=== PATIENT | female | born 1940 | race Two or more races ===

== ENCOUNTER 2016-12-19 06:48 | Observation (INO) | payer MEDICARE ==
[2016-12-15 10:43] LABS: HEMATOCRIT 46.5 % (34.6-47.8); HEMOGLOBIN 15.9 g/dL (11.7-16.4); WHITE BLOOD COUNT 6.9 x10^3/uL (3.4-10)
[2016-12-15 10:54] LABS: BLOOD UREA NITROGEN 12 mg/dL (7-18)
[2016-12-15 10:57] LABS: ASPARTATE AMINO TRANSFERASE 25 U/L (15-37)
[~2016-12-19] VITALS: Ht 165.1 cm; Wt 63.0 kg
[~2016-12-19 06:48] MED LIST: ACET325T14 PO; ASPI-496 PO; ATOR10TA9 PO; BIOT1CAP3 PO; BIOT1TAB2 PO; CHOL200024 PO; CITA10TA8 PO; DOXY100T10 PO; FLUT16SP2 NS; GABA300C10 PO; METO-93 PO; METO50TA82 PO; ROPI4TAB3 PO; ROPI4TAB4 PO
[2016-12-19] MEDS ORDERED: SODIUM CHLORIDE 0.9% 1,000 ML IV SCH (06:50)
[2016-12-19] MEDS ORDERED: ISOPROTERENOL 0.2MG/ML, 5ML ONE (07:55)
[2016-12-19] MEDS ORDERED: ADENOSINE 6 MG/2 ML ONE (07:55)
[2016-12-19] MEDS ORDERED: MIDAZOLAM 1 MG/ML, 5ML ONE ×2 (07:55→10:18)
[2016-12-19] MEDS ORDERED: FENTANYL PF 100 MCG/2ML ONE ×2 (07:55→10:18)
[2016-12-19] MEDS ORDERED: LIDOCAINE 2%, 20ML ONE ×2 (07:56→09:45)
[2016-12-19] MEDS ORDERED: HEPARIN 1,000 UNITS/ML, 10ML ONE (07:56)
[2016-12-19] MEDS ORDERED: PROTAMINE SULFATE 10 MG/ML, 5ML ONE (09:48)
[2016-12-19] MEDS ORDERED: DIPHENHYDRAMINE 50 MG/ML, 1ML ONE (10:18)
[2016-12-19] MEDS ORDERED: ACETAMINOPHEN 325 MG TABLET PO PRN (12:30)
[2016-12-19] MEDS ORDERED: ZOLPIDEM 5MG TABLET PO PRN (12:30)
[2016-12-19 17:24] VITALS: BP 135/78
[2016-12-19 20:40] VITALS: BP 129/71
[2016-12-19] MEDS ORDERED: ATORVASTATIN 10 MG TABLET PO SCH (21:00)
[2016-12-20 02:00] VITALS: BP 138/81
[2016-12-20] MEDS ORDERED: CHOLECALCIFEROL 1,000 UNIT TABLET PO SCH (09:00)
[2016-12-20] MEDS ORDERED: ASPIRIN 81 MG TABLET EC PO SCH ×2 (09:00)
[2016-12-20] MEDS ORDERED: CITALOPRAM 10 MG TABLET PO SCH (09:00)
[2016-12-20] MEDS ORDERED: TEMPLATE NON-FORMULARY MED. (Biotin** 1 MG) PO SCH (09:00)
[2016-12-20] MEDS ORDERED: ROPINIROLE 1MG TABLET PO SCH (09:00)
[2016-12-20] MEDS ORDERED: ASPI325T17 PO (09:01)
[2016-12-20 09:54] VITALS: BP 101/68
== END 2016-12-20 11:33 | disposition home or self-care (01) ==
LOC: CACL 06:48 → ORIP 12:30 → 5SO 16:42 → DCLOUNGE 12-20 10:44
PROVIDERS: ADMIT Internal Medicine Cardiovascular Disease; ATTEND Internal Medicine Cardiovascular Disease
DX: I47.1 Supraventricular tachycardia (principal); E78.5 Hyperlipidemia, unspecified
CPT/HCPCS: 85347; 93462; 93613; 93621; 93623; 93653; 93662; C1730; C1732; C1759; C1760; C1766; C1893; C1894; C2630; G0378; J1200; J1644; J2250; J2720; J3010; J3490; Q9967; 36415; 80053; 85025; 85610; 85730; J0153

== ENCOUNTER → 2018-01-09 | Outpatient (CLI) | payer MEDICARE ==
[~2018-01-09] MED LIST changes: +ASPI325T17 PO; -ROPI4TAB4 PO; +ROPI4TAB8 PO
== END | disposition home or self-care (01) ==
LOC: CFH 13:27
PROVIDERS: ATTEND Family Medicine
DX: E78.2 Mixed hyperlipidemia (principal); Z95.0 Presence of cardiac pacemaker
CPT/HCPCS: 71046

== ENCOUNTER 2018-04-11 09:24 | Emergency (ER) | payer MEDICARE ==
[~2018-04-11] VITALS: Ht 165.1 cm; Wt 62.0 kg
--- NOTE | 2018-04-11 09:49 | NUR ---
[employer]: PT TO ROOM FROM LOBBY VIA W/C.
--- NOTE | 2018-04-11 10:05 | NUR ---
DIZZINESS, PALPITATIONS TODAY. HX OF CARDIAC STENTS, PACEMAKER. CARDS=ELIDIA. PER TRIAGE NOTE
[2018-04-11 10:29] LABS: BASOPHILS # (AUTO) 0.07 x10^3/uL (0-0.1); BASOPHILS % (AUTO) 1 % (0-1); EOSINOPHILS # (AUTO) 0.06 x10^3/uL (0-0.4); EOSINOPHILS % (AUTO) 1 % (1-7); LYMPHOCYTES # (AUTO) 1.43 x10^3/uL (1-3.4); LYMPHOCYTES % (AUTO) 18 % (22-44); MD NO; MEAN CORPUSCULAR HEMOGLOBIN 31.9 pg (27.0-34.8); MEAN CORPUSCULAR HGB CONC 33.3 g/dL (32.4-35.8); MEAN CORPUSCULAR VOLUME 95.8 fL (80-100); MEAN PLATELET VOLUME 10.3 fL (7.4-10.4); MONOCYTES # (AUTO) 0.46 x10^3/uL (0.2-0.8); MONOCYTES % (AUTO) 6 % (2-9); NEUTROPHILS % (AUTO) 74 % (42-75); PLATELET COUNT 190 x10^3/uL (130-400); RED BLOOD COUNT 4.65 x10^6/uL (3.82-5.3); RED CELL DISTRIBUTION WIDTH 12.5 % (9.6-15.2)
[2018-04-11 10:37] LABS: CHLORIDE 107 mmol/L (98-107); INTERNATIONAL NORMALIZED RATIO 1.01 (0.93-1.1); PROTHROMBIN TIME 10.7 Seconds (9.6-11.5)
[2018-04-11 10:41] LABS: ANION GAP 10 mmol/L (5-15); CALCIUM 9.6 mg/dL (8.5-10.1)
[2018-04-11] MEDS ORDERED: LORazepam 1MG TABLET ONE (10:45)
[2018-04-11 10:47] LABS: ALANINE AMINOTRANSFERASE 31 U/L (12-78); ALKALINE PHOSPHATASE 81 U/L (45-117); BILIRUBIN,TOTAL 0.6 mg/dL (0.2-1.0); CREATININE 0.79 mg/dL (0.55-1.02); TOTAL PROTEIN 7.4 g/dL (6.4-8.2); TROPONIN I < 0.015 ng/mL (0.000-0.045)
[2018-04-11] MEDS ORDERED: LORazepam 1MG TABLET PO ONE (11:00)
--- NOTE | 2018-04-11 12:05 | NUR ---
DR TYSON AT BED SIDE FOR RECHECK
--- NOTE | 2018-04-11 12:21 | NUR ---
DR TYSON AT BED SIDE GIVEN POC FAMILY AND PT UNDERSTOOD
--- NOTE | 2018-04-11 13:08 | NUR ---
GIVEN DC INSTRUCTION PT UP AMBULATED W/O ANY DIZZINESS BEFORE GIVEN DC PLAN VSS WAS STABLE PT SHOWS UP AMBULATION W/O ANY DIFFICULTY PT UP AMBULATED UP TO CHECK OUT WITH W/O ANY DIFFICULTY
[2018-04-11 13:09] VITALS: BP 148/68
== END 2018-04-11 13:11 | disposition home or self-care (01) ==
LOC: ED 13:00
DX: F41.1 Generalized anxiety disorder (principal); R06.4 Hyperventilation; I10 Essential (primary) hypertension; Z95.0 Presence of cardiac pacemaker
CPT/HCPCS: 36415; 71045; 80053; 84484; 85025; 85610; 93005; 99284

== ENCOUNTER → 2018-07-30 | Outpatient (CLI) | payer MEDICARE | END | disposition home or self-care (01) | LOC: RAD 12:35 | PROVIDERS: ATTEND Family Medicine | DX: E04.1 Nontoxic single thyroid nodule (principal) | CPT/HCPCS: 10005; 88173 ==

== ENCOUNTER 2018-11-02 08:59 | Outpatient (CLI) | payer MEDICARE | END 2018-11-02 23:59 | disposition home or self-care (01) | LOC: CFH 08:59 | PROVIDERS: ATTEND Internal Medicine Cardiovascular Disease | DX: I47.1 Supraventricular tachycardia (principal); Z95.0 Presence of cardiac pacemaker | CPT/HCPCS: 71046 ==

== ENCOUNTER 2020-06-26 10:35 | Emergency (ER) | payer MEDICARE ==
[~2020-06-26] VITALS: Ht 162.6 cm; Wt 60.0 kg
[~2020-06-26 10:35] MED LIST changes: -DOXY100T10 PO; +DOXY100T23 PO
[2020-06-26 10:41] VITALS: BP 177/79
[2020-06-26] MEDS ORDERED: PROPOFOL 10 MG/ML, 20ML ONE (10:52)
[2020-06-26] MEDS ORDERED: HYDROmorphone 1 MG/ML, 1ML INJ ONE (10:52)
[2020-06-26] MEDS ORDERED: SODIUM CHLORIDE FLUSH 10ML SYR IVF ONE (11:00)
[2020-06-26] MEDS ORDERED: HYDROmorphone 1 MG/ML, 1ML INJ IVPush PRN (11:00)
[2020-06-26] MEDS ORDERED: PROPOFOL 10 MG/ML, 20ML IVPush ONE (11:00)
--- NOTE | 2020-06-26 11:20 | NUR ---
PT CAME IN AFTER FALLING AND TWISTING HER LEFT ANKLE. OBV DEFORMITY. CMS AND PULSES INTACT. IV STARTED. PT TO GET ANKLE REDUCTION AND SEDATION. ALL SAFETY MEASURES IN PLACE. CRASH CART OUTSIDE OF ROOM. SEE PRINTOUT FOR VITALS
[2020-06-26 11:26] LABS: BASOPHILS % (AUTO) 2 % (0-1); EOSINOPHILS % (AUTO) 3 % (1-7); LYMPHOCYTES % (AUTO) 40 % (22-44); MEAN CORPUSCULAR HEMOGLOBIN 32.9 pg (27.0-34.8); MEAN CORPUSCULAR HGB CONC 33.7 g/dL (32.4-35.8); MEAN PLATELET VOLUME 9.7 fL (7.4-10.4); MONOCYTES % (AUTO) 7 % (2-9); NEUTROPHILS % (AUTO) 48 % (42-75); PLATELET COUNT 186 x10^3/uL (130-400); RED CELL DISTRIBUTION WIDTH 12.8 % (9.6-15.2)
--- NOTE | 2020-06-26 11:28 | NUR ---
PT STILL UNDER SEDATION. WILL CONTINUE TO MONITOR. LOAF COUNTER APPLYING SPLINT
[2020-06-26 11:33] LABS: ALBUMIN 4.1 g/dL (3.4-5.0); ANION GAP 7 mmol/L (5-15); CALCIUM 9.2 mg/dL (8.5-10.1); CHLORIDE 105 mmol/L (98-107); CREATININE 0.96 mg/dL (0.55-1.02)
[2020-06-26 11:40] LABS: MD NO
[2020-06-26] MEDS ORDERED: ONDANSETRON 2MG/ML, 2ML ONE (11:42)
--- NOTE | 2020-06-26 11:49 | NUR ---
PT CO OF NAUSEA. SEE MAR FOR INTERVENTIONS.
[2020-06-26] MEDS ORDERED: ONDANSETRON 2MG/ML, 2ML IVPush ONE (12:00)
== END 2020-06-26 12:35 | disposition home or self-care (01) ==
LOC: ED 11:25
DX: S82.852A Displaced trimalleolar fracture of left lower leg, initial encounter for closed fracture (principal); S93.05XA Dislocation of left ankle joint, initial encounter; I10 Essential (primary) hypertension; W01.0XXA Fall on same level from slipping, tripping and stumbling without subsequent striking against object, initial encounter; Y93.89 Activity, other specified; Y92.009 Unspecified place in unspecified non-institutional (private) residence as the place of occurrence of the external cause; Y99.8 Other external cause status
CPT/HCPCS: 27818; 36415; 73590; 73600; 80048; 82040; 85025; 96374; 96375; 99152; 99285; J1170; J2405